=== PATIENT | male | born 1945 | race Caucasian/White ===

== ENCOUNTER 2017-04-06 18:39 | Emergency (ER) | payer MEDICARE, OTHER ==
[~2017-04-06] VITALS: Ht 180.3 cm; Wt 59.0 kg
--- OUTSIDE RECORDS SUMMARY | ~2017-04-06 | XMS | Clinical Summary ---
Demographics + + + | Address | [address] [address] | | | [place] [address] | + + + | Home Phone | | + + + | Preferred Language | Unknown | + + + | Marital Status | Single | + + + | Taoist Affiliation | Unknown | + + + | Race | Unknown | + + + | Ethnic Group | Other Race | + + + Author + + + | Author | [facility] | + + + | Organization | [facility] | + + + | Address | Unknown | + + + | Phone | Unavailable | + + + Care Team Providers + +------+ + | Care Environmental Remediation Specialist Name | Role | Phone | + +------+ + PP | Unavailable | + +------+ + Source Comments KETURAH is fully live on both [facility] and [facility] Allergies Not on File Current Medications Not on file Active Problems Not on file Social History + +-------+ +--------+------+ | Tobacco Use | Types | Packs/Day | Years | Date | | | | | Used | | + +-------+ +--------+------+ | Never Assessed | | | | | + +-------+ +--------+------+ + + + | Sex Assigned at | Date Recorded | | | | + + + | Not on file | | + + + Plan of Treatment Not on file Results Not on filefrom Last 3 Months"
--- OUTSIDE RECORDS SUMMARY | ~2017-04-06 | XMS | Clinical Summary ---
Demographics + + + | Address | [address] [address] | | | [place] [address] | + + + | Home Phone | | + + + | Preferred Language | Unknown | + + + | Marital Status | Single | + + + | Yazidism Affiliation | Unknown | + + + | Race | Unknown | + + + | Ethnic Group | Other Race | + + + Author + + + | Author | [facility] | + + + | Organization | [facility] | + + + | Address | Unknown | + + + | Phone | Unavailable | + + + Care Team Providers + +------+ + | Care Crystal Grower Name | Role | Phone | + +------+ + PP | Unavailable | + +------+ + Source Comments KETURAH is fully live on both [facility] and [facility] Allergies Not on File Current Medications Not [...]
[2017-04-06] MEDS ORDERED: TAMSULOSIN HCL0.4 MG PO (18:58)
[2017-04-06] MEDS ORDERED: BUDESONIDE EC3 MG PO (18:59)
== END 2017-04-06 19:39 | disposition home or self-care (01) ==
LOC: ED 18:39
PROC: 0HQGXZZ Repair Left Hand Skin, External Approach (ICD-10-PCS; principal; 2017-04-06)
DX: S61.412A Laceration without foreign body of left hand, initial encounter (principal); Z98.818 Other dental procedure status; Z79.899 Other long term (current) drug therapy; Z23 Encounter for immunization; W25.XXXA Contact with sharp glass, initial encounter
CPT/HCPCS: 12001; 90471; 90715; 99282

== ENCOUNTER 2020-11-04 11:32 | Day surgery (SDC) | payer MEDICARE, OTHER ==
[~2020-11-04] VITALS: Ht 180.3 cm; Wt 56.8 kg
[~2020-11-04 11:32] MED LIST: BUDESONIDE EC3 MG PO; TAMSULOSIN HCL0.4 MG PO
[2020-11-04] MEDS ORDERED: VITAMIN D325 MCG PO (11:48)
[2020-11-04] MEDS ORDERED: MULTIVITAMIN1 EACH PO (11:49)
--- NOTE | 2020-11-04 13:05 | NUR ---
11/04/20 1305 Nancy Gonzales 1250 PATIENT ARRIVES TO PACU RESTING WITH EYES CLOSED. RESPONDS TO REPEATED VERBAL STIMULI. REPOSITIONS SELF TO POSITION OF COMFORT, BACK TO SLEEP WHEN NOT STIMULATED. RESP EVEN AND UNLABORED, NC AT 3 LITERS, SATS 100%. 1300 PATIENT SLEEPING. OCCASIONALLY NEEDS REMINDER TO TAKE A DEEP BREATH, PATIENT FOLLOWS COMMANDS, THEN BACK TO SLEEP RESP EVEN AND UNLABORED, OXYGEN OFF, ROOM AIR SATS >95%.
--- NOTE | 2020-11-05 13:17 | OR ---
[facility] [address], [place] [address] Signed DATE OF OPERATION: 11/04/2020 SURGEON: Yudy Rodriguez MD PREOPERATIVE DIAGNOSIS: Longstanding history of lymphocytic colitis, episodic use of budesonide. POSTOPERATIVE DIAGNOSIS: Low-grade inflammation consistent with lymphocytic colitis, dominantly cecum and transverse colon with rectosigmoid sparing. PROCEDURE: Total colonoscopy to cecum with multiple biopsies. ANESTHESIA: Intravenous sedation, fentanyl 100 mcg and Versed 5 mg. 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 Bro Castaneda for a number of years with episodic use of budesonide. Occasions require use of the medication, but generally he does not require anything. He occasionally uses loperamide for symptomatic control of diarrhea. He is admitted to undergo surveillance colonoscopy, understand the risks of bleeding, infection, and perforation and knowing these risks, wishes to proceed. FINDINGS: The prep was good. Complete colonoscopy was undertaken to the cecum. Attempts to enter the ileum were not successful particularly, but I did not pursue it too extensively under the circumstances of his known underlying diagnosis and prior history of biopsies of the ileum, which were normal. The colon itself did show edematous changes of mucosa consistent with chronic colitis most dominantly in the sigmoid and right colon as well as a transverse and less so in the sigmoid and left colon. Biopsies were taken throughout otherwise however. DESCRIPTION OF PROCEDURE: The patient was brought to the endoscopy suite and placed in lateral decubitus position, given intravenous sedation to the point of slurred speech and nystagmus. Digital rectal examination was normal. Electronically Signed By: YUDY RODRIGUEZ MD 11/05/20 1317 PATIENT NAME: MALACHI BADILLO OPERATIVE REPORT DATE OF : 45 REPORT #: [id number] PHYSICIAN: YUDY RODRIGUEZ MD PCP: SHILO NELSON MD REPORT IS CONFIDENTIAL AND NOT TO BE RELEASED WITHOUT AUTHORIZATION [facility] [address], [place] [address] Signed An Olympus video colonoscope was passed in the rectum and manipulated throughout the colon noting low-grade edematous changes of the mucosa of the colon. The scope was ultimately passed to the cecum. The ileocecal valve was identified as was the appendiceal orifice. The cecum had mild inflammatory change as might be expected, certainly no ulcerations. Various attempts to enter the slit like ileocecal valve were undertaken. However, easy passage was not forthcoming and further efforts to intubate it were abandoned. Biopsies were taken of the cecum and the scope was withdrawn. Examination throughout showed similar findings throughout. However, the sigmoid and portion of the left colon appeared to be entirely free of clinical findings of inflammation, specifically no edematous changes. Scope was removed and the patient was taken to the recovery room in good condition. CONCLUDING DIAGNOSIS: Longstanding lymphocytic colitis, likely with ongoing low-grade histologic similar findings. PLAN: He currently is under regimen of budesonide 3 mg as needed for symptom flare. That is a reasonable approach. Currently seems to be well managed without any specific medication. He has had benefit of loperamide, which is well known to him as well and that has afforded more cost effective symptom control and is reasonable to use as well. He will follow up with me in about four weeks in the office, sooner if problems should occur. MD BENTLEY Lagos/MODL /[id number] cc: MD Shilo Cortes MD Copies: SHILO NELSON MD Electronically Signed By: YUDY RODRIGUEZ MD 11/05/20 1317 PATIENT NAME: MALACHI BADILLO OPERATIVE REPORT DATE OF : 45 REPORT #: [id number] PHYSICIAN: YUDY RODRIGUEZ MD PCP: SHILO NELSON MD REPORT IS CONFIDENTIAL AND NOT TO BE RELEASED WITHOUT AUTHORIZATION [address] [place], [place] [address] Signed ~ Electronically Signed By: YUDY RODRIGUEZ MD 11/05/20 1317 PATIENT NAME: MALACHI BADILLO OPERATIVE REPORT DATE OF : 45 REPORT #: [id number] PHYSICIAN: YUDY RODRIGUEZ MD PCP: SHILO NELSON MD REPORT IS CONFIDENTIAL AND NOT TO BE RELEASED WITHOUT AUTHORIZATION
--- NOTE | 2020-11-06 13:13 | PATH ---
[facility] [address], [place] [address] Signed SPECIMEN(S): A CECUM BIOPSY SPECIMEN(S): B ASCENDING/RIGHT COLON BIOPSY SPECIMEN(S): C TRANSVERSE COLON BIOPSY SPECIMEN(S): D SPLENIC FLEXURE COLON BIOPSY SPECIMEN(S): E DESCENDING/LEFT COLON BIOPSY SPECIMEN(S): F SIGMOID COLON BIOPSY SPECIMEN(S): G RECTUM BIOPSY SPECIMEN SOURCE: A. CECUM BIOPSY B. ASCENDING/RIGHT COLON BIOPSY C. TRANSVERSE COLON BIOPSY D. SPLENIC FLEXURE COLON BIOPSY E. DESCENDING/LEFT COLON BIOPSY F. SIGMOID COLON BIOPSY G. RECTUM BIOPSY CLINICAL HISTORY: History: Microscopic colitis. Diagnosis: Lymphocytic colitis. MICROSCOPIC DESCRIPTION: Histologic sections of all submitted blocks are examined by light microscopy. These findings, together with the gross examination, support the pathologic diagnosis. FINAL PATHOLOGIC DIAGNOSIS: A. Colon, cecum, biopsy: - Hyperplastic polyp. - Background colonic mucosa with focal active colitis. - Negative for granulomas, dysplasia, or malignancy. B. Colon, ascending/right, biopsy: - Colonic mucosa with mild increased intraepithelial lymphocytes and minimal active colitis. - Negative for granulomas, dysplasia, or malignancy. C. Colon, transverse, biopsy: - Colonic mucosa with mild increased intraepithelial lymphocytes and minimal active colitis. - Negative for granulomas, dysplasia, or malignancy. D. Colon, splenic flexure, biopsy: - Colonic mucosa with mild increased intraepithelial lymphocytes and minimal active colitis. - Negative for granulomas, dysplasia, or malignancy. PATIENT NAME: MALACHI BADILLO PATHOLOGY DATE OF : 45 REPORT #: [id number] PHYSICIAN: JESUS MARTINEZ PCP: SHILO NELSON MD REPORT IS CONFIDENTIAL AND NOT TO BE RELEASED WITHOUT AUTHORIZATION [facility] [address], [place] [address] Signed E. Colon, descending/left, biopsy: - Colonic mucosa with mild increased intraepithelial lymphocytes and minimal active colitis. - Negative for granulomas, dysplasia, or malignancy. F. Colon, sigmoid, biopsy: - Colonic mucosa with increased intraepithelial lymphocytes. - Negative for granulomas, dysplasia, or malignancy. G. Rectum, biopsy: - Colorectal mucosa with mildly increased intraepithelial lymphocytes. - Negative for granulomas, dysplasia, or malignancy. COMMENT: Regarding specimens B-G: The colonic and rectal biopsies are similar and demonstrate colorectal mucosa with mildly increased intraepithelial lymphocytes with minimal focal active inflammation and increased lamina propria lymphoplasmacytosis. Areas of mild surface mucosal injury are seen. In the appropriate clinical context, the features are compatible with a mild lymphocytic colitis. NAL:cml:C2NR GROSS DESCRIPTION: Seven specimens are received in seven containers, labeled "Malachi Badillo." A. The specimen, labeled "Malachi Badillo, #1," and designated on the requisition "cecum biopsy," is received in formalin and consists of two parry soft tissue fragment(s) that measure 0.2 and 0.2 cm in greatest dimension. The specimen is entirely submitted in cassette (A1). B. The specimen, labeled "Malachi Badillo, #2," and designated on the requisition "ascending right colon biopsy," is received in formalin and consists of one parry soft tissue fragment that measures 0.6 cm in greatest dimension. The specimen is entirely submitted in cassette (B1). C. The specimen, labeled "Malachi Badillo, #3," and designated on the requisition "transverse colon biopsy," is received in formalin and consists of one parry soft tissue fragment(s) that measure 0.4 cm in greatest dimension. The specimen is entirely submitted in cassette (C1). D. The specimen, labeled "Malachi Badillo, #4," and designated on the requisition "splenic flexure colon biopsy," is received in formalin and consists of two parry soft tissue fragment(s) that measure 0.3 and 0.3 cm in greatest dimension. The specimen is entirely submitted in cassette (D1). E. The specimen, labeled "Malachi Badillo, #5," and designated on the PATIENT NAME: MALACHI BADILLO PATHOLOGY DATE OF : 45 REPORT #: [id number] PHYSICIAN: JESUS MARTINEZ PCP: SHILO NELSON MD REPORT IS CONFIDENTIAL AND NOT TO BE RELEASED WITHOUT AUTHORIZATION [facility] [address] [place] [id number] Signed requisition "descending/left colon biopsy," is received in formalin and consists of two parry soft tissue fragment(s) that measure 0.2 and 0.3 cm in greatest dimension. The specimen is entirely submitted in cassette (E1). F. The specimen, labeled "Malachi Badillo, #6," and designated on the requisition "sigmoid colon biopsy," is received in formalin and consists of three parry soft tissue fragment(s) that measure 0.2-0.3 cm in greatest dimension. The specimen is entirely submitted in cassette (F1). G. The specimen, labeled "Malachi Badillo, #7," and designated on the requisition "rectum biopsy," is received in formalin and consists of two parry soft tissue fragment(s) that measure 0.3 and 0.3 cm in greatest dimension. The specimen is entirely submitted in cassette (G1). FB (under the direct supervision of a pathologist) The Gross Description was prepared using a voice recognition system. The report was reviewed for accuracy; however, sound-alike word errors, addition and/or deletions may occur. If there is any question about this report, please contact Client Services. PERFORMING LABORATORY: The technical component was performed [place] [address] (Technology Instructor: Serene Montoya MD; CLIA# [id number]). Professional interpretation was performed [place] [address] (CLIA# [id number]). Diagnostician: Alley Hughes MD Pathologist Electronically Signed 11/06/2020 Copies: ~ PATIENT NAME: MALACHI BADILLO PATHOLOGY DATE OF : 45 REPORT #: [id number] PHYSICIAN: JESUS PATHOLOGY PCP: SHILO NELSON MD REPORT IS CONFIDENTIAL AND NOT TO BE RELEASED WITHOUT AUTHORIZATION
== END 2020-11-04 13:45 | disposition home or self-care (01) ==
LOC: OPS 11:32 → DS 11:32 → OPS 13:00 → DS 13:00 → OPS 13:45
PROVIDERS: ATTEND Surgery
PROC: 0DBK8ZX Excision of Ascending Colon, Via Natural or Artificial Opening Endoscopic, Diagnostic (ICD-10-PCS; 2020-11-04)
PROC: 0DBL8ZX Excision of Transverse Colon, Via Natural or Artificial Opening Endoscopic, Diagnostic (ICD-10-PCS; 2020-11-04)
PROC: 0DBN8ZX Excision of Sigmoid Colon, Via Natural or Artificial Opening Endoscopic, Diagnostic (ICD-10-PCS; 2020-11-04)
PROC: 0DBP8ZX Excision of Rectum, Via Natural or Artificial Opening Endoscopic, Diagnostic (ICD-10-PCS; 2020-11-04)
PROC: 0DBM8ZX Excision of Descending Colon, Via Natural or Artificial Opening Endoscopic, Diagnostic (ICD-10-PCS; 2020-11-04)
PROC: 0DBH8ZX Excision of Cecum, Via Natural or Artificial Opening Endoscopic, Diagnostic (ICD-10-PCS; principal; 2020-11-04 13:00)
DX: K52.832 Lymphocytic colitis (principal); K63.5 Polyp of colon; Z86.16 Personal history of COVID-19; Z87.81 Personal history of (healed) traumatic fracture; Z79.52 Long term (current) use of systemic steroids
CPT/HCPCS: 88305; 99153; G0500; J2250; J3010; J7121

== ENCOUNTER 2025-01-21 18:47 | Emergency (ER) | payer MEDICARE, OTHER ==
[~2025-01-21] VITALS: Ht 180.3 cm; Wt 56.5 kg
[~2025-01-21 18:47] MED LIST changes: +MULTIVITAMIN1 EACH PO; +VITAMIN D325 MCG PO
[2025-01-21 18:53] LABS: BASOPHILS 0.4 % (0.2-1.2); EOSINOPHILS 3.0 % (0.8-7.0); LYMPHOCYTES 20.1 % (21.8-53.1); MCH 30.1 PG (25.7-32.2); MCHC 32.8 g/dL (32.3-36.5); MCV 91.9 fL (79.0-92.2); MONOCYTES 7.0 % (5.3-12.2); NEUTROPHILS 69.1 % (34.0-67.9); RBC 4.71 M/uL (4.63-6.08)
[2025-01-21 19:06] LABS: INR 1.03 (0.80-1.30); PROTIME 12.8 Sec (11.2-14.2)
[2025-01-21] MEDS ORDERED: LORazepam 2 MG/ML VIAL ONE (19:14)
[2025-01-21] MEDS ORDERED: SODIUM CHLORIDE 0.9% 100 ML IV ONE (19:15)
[2025-01-21] MEDS ORDERED: LORazepam 2 MG/ML VIAL IV ONE (19:15)
[2025-01-21 19:16] LABS: ALT (SGPT) 21.0 U/L (14-59); AST (SGOT) 31.0 U/L (15-37); GLOMERULAR FILTRATION RATE,EST 75.0 mL/min (>60); PROTEIN, TOTAL 7.1 g/dL (6.4-8.2); UREA NITROGEN 20.0 mg/dL (7-18)
[2025-01-21] MEDS ORDERED: SUCCINYLCHOLINE IN 0.9% NACL 200 MG/10 ML SYRINGE IV ONE (21:55)
[2025-01-21 22:24] LABS: BASE EXCESS, BLOOD GAS 0.3 mmol/L (-2-2); HCO3, BLOOD GAS 27.3 mmol/L (22-26); O2 SATURATION, BLOOD GAS > 100.0 % (95.0-100.0); OXYGEN RECEIVED, BLOOD GAS 100% VENT; PCO2, BLOOD GAS 53.1 mmHg (35-45); PH, BLOOD GAS 7.32 (7.35-7.45); PO2, BLOOD GAS 370 mmHg (80-100); TOTAL CO2, BLOOD GAS 28.9
[2025-01-21] MEDS ORDERED: PATIENT'S OWN MEDICATION(S) ORDER IV STA (23:04)
[2025-01-22 01:23] VITALS: BP 98/51
--- NOTE | 2025-01-23 07:25 | EKG ---
[facility] [address] [facility] [place], [place] [address] Signed Sinus tachycardia Possible Left atrial enlargement Septal infarct , age undetermined Abnormal ECG No previous ECGs available Confirmed by Cynthia Garza DO ([id number]) on 01/23/2025 7:25:30 AM Electronically Signed By: CYNTHIA GARZA DO 01/23/25 0725 PATIENT NAME: MALACHI BADILLO Electrocardiogram DATE OF : 45 PHYSICIAN: CYNTHIA GARZA DO REPORT #: [id number] REPORT IS CONFIDENTIAL AND NOT TO BE RELEASED WITHOUT AUTHORIZATION
== END 2025-01-22 01:35 | disposition short-term general hospital (02) ==
LOC: ED 18:47
PROVIDERS: Emergency Medicine
DX: G93.89 Other specified disorders of brain (principal); R56.9 Unspecified convulsions; Z79.899 Other long term (current) drug therapy
CPT/HCPCS: 31500; 36415; 36600; 51702; 70450; 70496; 70498; 70553; 71045; 80053; 82803; 84484; 85025; 85610; 85730; 93005; 93010; 96374; 96375; 96376; 99285-25; A9573; J0330; J1953; J2060; J2704; Q9967

== ENCOUNTER 2025-02-08 18:25 | Emergency (ER) | payer MEDICARE, OTHER ==
[~2025-02-08] VITALS: Ht 180.3 cm; Wt 55.7 kg
--- OUTSIDE RECORDS SUMMARY | 2025-02-08 18:33 | XMS ---
PreManage Notification: MALACHI BADILLO Security [employer]erry[employer] Events No recent Security Events currently on file CRITERIA MET - [facility] - 2 Visits in 30 Days CARE PROVIDERS There are no care providers on record at this time. Heather has no Care Guidelines for this patient. Crist[facility] (12 MO.) [facility] NOTE: Visits indicate total known visits. ED/C VISIT TRACKING (12 MO.) [facility]25 18:[facility] [place] [facility]: Emergency COMPLAINT: - MED EVALUATION 01/21/2025 18:[address] [facility] [place] TYPE: Emergency COMPLAINT: - STROKE SYMPTOMS DIAGNOSES: - Other fpc (current) drug therapy - Other specified disorders of brain - Unspecified convulsions INPATIENT VISIT TRACKING (12 MO.) 01/22/2025 03:08 [facility] DIAGNOSES: - Acute respiratory failure, unspecified whether with hypoxia or hypercapnia - Anemia, unspecified - Aphasia - Benign prostatic hyperplasia without lower urinary tract symptoms - Cerebral edema - Epilepsy, unspecified, not intractable, with status epilepticus - Lymphocytic colitis - Other specified disorders of brain - Other toxic encephalopathy [email or web address]
[2025-02-08] MEDS ORDERED: FINASTERIDE5 MG PO (18:45)
[2025-02-08] MEDS ORDERED: KEPPRA750 MG PO (18:53)
[2025-02-08] MEDS ORDERED: DEXAMETHASONE SOD PHOS 10 MG/ML VIAL IM ONE (21:30)
[2025-02-08] MEDS ORDERED: DEXAMETHASONE1.5 M3 PO (21:33)
[2025-02-08 21:58] VITALS: BP 124/76
== END 2025-02-08 21:45 | disposition home or self-care (01) ==
LOC: ED 18:25
DX: C71.9 Malignant neoplasm of brain, unspecified (principal); Z79.899 Other long term (current) drug therapy
CPT/HCPCS: 70450; 99285-25; J1100